=== PATIENT | female | born 1970 | race Caucasian/White ===

== ENCOUNTER 2021-07-25 03:53 | Emergency (ER) | payer OTHER, SELFPAY ==
[2021-07-25 04:03] VITALS: BP 135/76; PULSE 65; RESP 14; TEMP 36.4; O2SAT 98; BMI 24.3
--- NOTE | 2021-07-25 04:08 | ED.DENTAL ---
HPI - Dental/Oral General Chief complaint: Dental/Oral Stated complaint: not feeling well Time Seen by Provider: 07/25/21 04:03 Source: family Mode of arrival: Ambulatory History of Present Illness HPI Narrative: 50-year-old female nonsmoker with history of relatively frequent occurrences of oral herpetic lesions since the mid s. She states that when she develops mouth pain she has been encouraged to start acyclovir soon as possible as this helps her symptoms. She typically had been treated by her healthcare providers in [place]. She states that she started having a painful lesion in the roof of her mouth yesterday which feels consistent with prior episodes. She denies any fever chills. She denies any difficulty swallowing or breathing. Related Data Previous Rx's Medication Instructions Recorded acyclovir 400 mg tablet 400 mg PO 5XD 5 Days #25 tab 07/25/21 Allergies Allergy/AdvReac Type Severity Reaction Status Date / Time cyclobenzaprine Allergy Verified 07/25/21 04:02 [From Flexeril] hydrocodone Allergy Verified 07/25/21 04:02 naproxen Allergy Verified 07/25/21 04:02 Sulfa (Sulfonamide Allergy Verified 07/25/21 04:02 Antibiotics) Review of Systems Review of Systems Narrative: GENERAL: Denies chills, fatigue, malaise, fever, sweats. HEENT: See HPI RESPIRATORY: Denies dyspnea, cough, wheezing, hemoptysis, sputum. CARDIOVASCULAR: Denies chest pain, palpitations, orthopnea, edema, GASTROINTESTINAL: Denies nausea, vomiting, abdominal pain, diarrhea, constipation, melena. : Denies dysuria, frequency, incontinence, hematuria, urinary retention. MUSCULOSKELETAL: denies weakness, joint pain, or bony pain SKIN: Denies rash, skin lesions, or other NEUROLOGIC: Denies weakness, headache, numbness, change in speech, confusion, seizures, incoordination. PSYCHIATRIC: No concerning psychosocial issues. 12 point review of systems is negative except for those stated above Patient History Social History Smoking Status: Never smoker Smoking Status: Never smoker Substance Use Type: does not use Exam Narrative Exam Narrative: GEN: AOx3 and in mild distress EYES: Pupils are equal, round, and reactive to light and accommodation. Extraoccular muscles are intact bilaterally. There is no subconjunctival hemorrhage or exudate. ENT: most mucous membranes. Small single ulceration on the roof of her mouth, no purulence, fluctuance or induration. No pharyngeal erythema or edema CHEST: Lungs are clear to auscultation bilaterally and free of wheezes, rales, or rhonchi. Heart rate is regular rhythm, there are no murmurs, clicks, rubs, or gallops. There is no chest wall tenderness. ABD: Abdomen is soft and nontender. There is no guarding or rebound. Bowel sounds are normal in all 4 quadrants. There is no mass or organomegaly. EXT: Full painless ROM of all extremities with no loss of sensation or strength. SKIN: Warm, pink, and dry. No erythema or rash Initial Vital Signs Initial Vital Signs: Vital Signs Temperature 97.6 F 07/25/21 04:03 Pulse Rate 65 07/25/21 04:03 Respiratory Rate 14 07/25/21 04:03 Blood Pressure 135/76 07/25/21 04:03 Pulse Oximetry 98 07/25/21 04:03 Course Orders Ordered: Discontinued Medications Acyclovir (Acyclovir 400 Mg Tablet) 400 mg PO NOW ONE Stop: 07/25/21 04:04 Last Admin: 07/25/21 04:34 Dose: 400 mg Documented by: HILDAN Vital Signs Vital signs: Vital Signs - 8 hr 07/25/21 04:03 Temperature 97.6 F Pulse Rate 65 Respiratory Rate 14 Blood Pressure 135/76 Pulse Oximetry 98 Discharge Plan Departure Patient Disposition: Home Clinical Impression: HSV (herpes simplex virus) infection Activity Restrictions/Additional Instructions: *You have been diagnosed with [oral recurrent *What to do: *Please continue to take your regular medications as directed. [x ] New medication prescriptions sent to your pharmacy: [ [facility] in [place]] [ ] New medication written as a paper prescription [ ] No new medications given *Please follow up with your primary care provider in 2-3 days, call for an appointment. Let them know you were seen in the Emergency Department and that we ask that you be seen in follow up. We will electronically transmit a record of today's note if your PCP is in our system *If you do not have a primary care provider please contact the [facility] Resource line at [phone]. They will ask some questions about your medical history and help get you set up with a doctor in the community. *Return to Emergency Department if you should have any new, worsening or concerning symptoms, such as [fever greater than 101 F, shaking chills, worsening pain, persistent vomiting or other bothersome symptoms] Prescriptions: New acyclovir 400 mg tablet 400 mg PO 5XD 5 Days Qty: 25 0RF
[2021-07-25] MEDS: ACYCLOVIR 400 MG TABLET PO (04:34)
--- NOTE | 2021-07-25 04:37 | PC.NURSE ---
pt has blister on roof of mouth on left side just behind the teeth.
== END 2021-07-25 04:47 | disposition home or self-care (01) ==
PROVIDERS: Emergency Provider Emergency Medicine
DX: B00.9 Herpesviral infection, unspecified (principal)
CPT/HCPCS: 99283